=== PATIENT | female | born 1980 | race African-American/Black ===

== ENCOUNTER 2025-09-19 17:16 | Outpatient (CLI) | payer OTHER, SELFPAY ==
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
== END 2025-09-19 17:17 | disposition home or self-care (01) ==
PROVIDERS: PCP Physician Assistant Medical; Visit Provider Physician Assistant Medical
DX: M54.2 Cervicalgia (principal)
CPT/HCPCS: 72040